=== PATIENT | female | born 1975 | race Caucasian/White ===

== ENCOUNTER 2017-07-13 09:11 | Inpatient (IN) | payer OTHER ==
[~2017-07-13] VITALS: Ht 162.6 cm; Wt 72.6 kg
[2017-07-27 09:22] VITALS: BP 103/56
[2017-07-27 14:25] VITALS: BP 105/58
[2017-07-27 17:57] LABS: HEMATOCRIT 39.4 % (36.0-46.0); HEMOGLOBIN 13.2 G/DL (11.9-15.5); MCH 28.1 PG (29.0-34.0); MCHC 33.5 G/DL (30.0-36.0); PLATELET COUNT 237 K/uL (156-360); RBC DIS.WIDTH-CV 11.5 % (11.8-14.6); RBC DIS.WIDTH-SD 35.1 % (39-53); RED BLOOD COUNT 4.69 M/uL (3.80-5.20); WHITE BLOOD COUNT 9.2 K/uL (4.1-10.2)
[2017-07-27 18:17] LABS: CHLORIDE 102 MEQ/L (99-109); CREATININE 0.7 MG/DL (0.6-1.3); GFR ESTIMATE (CALCULATED) > 59 mL/min/; GLUCOSE 163 mg/dL (70-99); POTASSIUM 3.8 MEQ/L (3.7-5.4); SODIUM 138 MEQ/L (136-147); UREA NITROGEN (BUN) 12 mg/dL (9-23)
[2017-07-27 19:59] VITALS: BP 114/57
[2017-07-28 00:03] VITALS: BP 94/50
[2017-07-28 03:57] VITALS: BP 99/54
[2017-07-28 07:05] LABS: HEMATOCRIT 36.8 % (36.0-46.0); HEMOGLOBIN 12.4 G/DL (11.9-15.5); MCH 28.7 PG (29.0-34.0); MCHC 33.7 G/DL (30.0-36.0); MCV 85.2 FL (83-99); PLATELET COUNT 241 K/uL (156-360); RBC DIS.WIDTH-CV 11.7 % (11.8-14.6); RBC DIS.WIDTH-SD 35.8 % (39-53); RED BLOOD COUNT 4.32 M/uL (3.80-5.20); WHITE BLOOD COUNT 11.9 K/uL (4.1-10.2)
[2017-07-28 07:27] LABS: CHLORIDE 103 MEQ/L (99-109); CREATININE 0.7 MG/DL (0.6-1.3); GFR ESTIMATE (CALCULATED) > 59 mL/min/; POTASSIUM 4.2 MEQ/L (3.7-5.4); SODIUM 139 MEQ/L (136-147); UREA NITROGEN (BUN) 6 mg/dL (9-23)
[2017-07-28 07:41] LABS: GLUCOSE 120 mg/dL (70-99)
[2017-07-28 08:32] VITALS: BP 118/54
[2017-07-28 11:54] VITALS: BP 107/57
[2017-07-28 17:04] VITALS: BP 105/51
[2017-07-28 20:23] VITALS: BP 108/58
[2017-07-29 00:54] VITALS: BP 105/62
[2017-07-29 06:50] LABS: HEMATOCRIT 34.1 % (36.0-46.0); HEMOGLOBIN 11.5 G/DL (11.9-15.5); MCH 29.1 PG (29.0-34.0); MCHC 33.7 G/DL (30.0-36.0); MCV 86.3 FL (83-99); PLATELET COUNT 187 K/uL (156-360); RBC DIS.WIDTH-CV 11.8 % (11.8-14.6); RBC DIS.WIDTH-SD 37.2 % (39-53); RED BLOOD COUNT 3.95 M/uL (3.80-5.20); WHITE BLOOD COUNT 6.9 K/uL (4.1-10.2)
[2017-07-29 07:16] LABS: CHLORIDE 102 MEQ/L (99-109); CREATININE 0.8 MG/DL (0.6-1.3); GFR ESTIMATE (CALCULATED) > 59 mL/min/; POTASSIUM 3.7 MEQ/L (3.7-5.4); SODIUM 139 MEQ/L (136-147); UREA NITROGEN (BUN) 7 mg/dL (9-23)
[2017-07-29 07:17] LABS: GLUCOSE 78 mg/dL (70-99)
[2017-07-29 08:56] VITALS: BP 110/53
[2017-07-29] MEDS ORDERED: TRAMADOL HCL50 MG PO (09:20)
[2017-07-29] MEDS ORDERED: CIPRO500 MG PO (09:20)
[2017-07-29] MEDS ORDERED: FLAGYL500 MG PO (09:20)
== END 2017-07-29 10:00 | disposition home or self-care (01) | DRG 742 ==
LOC: 2SOUTH 09:11 → ENRESERV 07-26 22:10 → 2SOUTH 07-27 08:55 → ENRESERV 07-27 13:10 → 2SOUTH 07-27 13:54 → 2EAST 07-27 14:25
PROVIDERS: Obstetrics & Gynecology Gynecologic Oncology
DX: D25.1 Intramural leiomyoma of uterus (principal); F33.9 Major depressive disorder, recurrent, unspecified; N83.201 Unspecified ovarian cyst, right side; K21.9 Gastro-esophageal reflux disease without esophagitis; N93.8 Other specified abnormal uterine and vaginal bleeding; F17.210 Nicotine dependence, cigarettes, uncomplicated; Z80.49 Family history of malignant neoplasm of other genital organs; Z86.718 Personal history of other venous thrombosis and embolism; Z80.0 Family history of malignant neoplasm of digestive organs
CPT/HCPCS: 36415; 80048; 85027; 86850; 86900; 86901; 86920; 87040; 87086; 88307; J0131; J0690; J0744; J1100; J1170; J1650; J1885; J1940; J2250; J2405; J2710; J2765; J3010; Q0175; S0030